=== PATIENT | female | born 1980 | race African-American/Black ===

== ENCOUNTER 2019-09-17 19:32 | Emergency (ER) | payer OTHER ==
[2019-09-17] MEDS ORDERED: ACETAMINOPHEN 500 MG TAB ONE (20:53)
[2019-09-17 21:27] VITALS: BP 131/82; TEMP 97.8
[2019-09-17 21:29] VITALS: O2SAT 99
--- NOTE | 2019-09-17 22:09 | RAD REPORT ---
EXAM DESCRIPTION: RAD - Elbow Right 3 View - 09/17/2019 8:56 pm CLINICAL HISTORY: arm injury COMPARISON: No comparisons FINDINGS: No fracture is identified and no elevated posterior fat pad. There is no dislocation or pe riosteal reaction noted. No foreign body or other soft tissue abnormality. No other significant findi ng. IMPRESSION: Negative right elbow examination.
--- NOTE | 2019-09-21 16:25 | EDPHYS ---
Physician Documentation [facility] Name: Anna Spaulding Age: 39 yrs Sex: Female : 1980 Arrival Date: 09/17/2019 Time: 19:36 Bed 4 Private MD: ED Physician Charanjit Vazquez HPI: 09/16 19:52 This 39 yrs old Black Female presents to ER via Ambulatory with complaints of Arm Pain. jmm 19:52 The patient or guardian complains of injury, pain. Onset: The symptoms/episode jmm began/occurred acutely, 1 day(s) ago. Modifying factors: The symptoms are alleviated by nothing. the symptoms are aggravated by movement. This is a 39 year old female with a history of overactive bladder that presents to the ED with complaints of right elbow pain which occurred when a weighted door his her arm. patient denies other injury. . 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 - Social history:: Smoking status: Patient denies any tobacco usage or history of. Patient/guardian denies using alcohol, street drugs, tobacco products. ROS: 19:52 Constitutional: Negative for fever, chills, and weight loss, Cardiovascular: Negative jmm for chest pain, palpitations, and edema, Respiratory: Negative for shortness of breath, cough, wheezing, and pleuritic chest pain. 19:52 MS/extremity: Positive for injury or acute deformity, pain. 19:52 All other systems are negative. Exam: 19:52 Constitutional: This is a well developed, well nourished patient who is awake, alert, jmm and in no acute distress. Head/Face: atraumatic. Eyes: EOMI, no conjunctival erythema appreciated ENT: Moist Mucus Membranes Neck: Trachea midline, Supple Chest/axilla: Normal chest wall appearance and motion. Cardiovascular: Regular rate and rhythm. No edema appreciated Respiratory: Normal respirations, no respiratory distress appreciated Abdomen/GI: Non distended, soft Back: Normal ROM Skin: General appearance color normal 19:52 Musculoskeletal/extremity: ROM: limited active range of motion due to pain, in the right arm and right elbow, Circulation is intact in all extremities. Sensation intact. 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 19:52 Skin: Appearance: Color: normal in color. 19:52 Neuro: Orientation: is normal, Mentation: is normal, Memory: is normal. 19:52 Psych: Behavior/mood is pleasant, cooperative. Vital Signs: 19:45 BP 131 / 82; Pulse 70; Resp 17; Temp 97.8; Pulse Ox 100% ; Pain 8/10; ll1 21:12 Pulse 72; Resp 16 S; Pulse Ox 99% on R/A; jd3 MDM: 19:[address] [facility] 21:04 Data reviewed: vital signs, nurses notes. Counseling: I had a detailed discussion with [facility] the patient and/or guardian regarding: the historical points, exam findings, and any diagnostic results supporting the discharge/admit diagnosis, radiology results, the need for outpatient follow up, to return to the emergency department if symptoms worsen or persist or if there are any questions or concerns that arise at home. ED course: Xray appears normal. patient advised to follow up with ortho for reevaluation and otherwise given strict return precautions. patient understood and agrees with the plan of care. . 09/16 20:04 Order name: Elbow Right [address] [facility] Administered Medications: 20:52 Drug: Tylenol 1000 mg Route: PO; jd3 21:13 Follow up: Response: No adverse reaction jd3 Disposition: 22:54 Co-signature as Attending Physician, Charanjit Vazquez MD. [email or web address] Disposition: 09/17/19 21:05 Discharged to Home. Impression: Contusion of right elbow. - Condition is Stable. - Discharge Instructions: Elbow Contusion. - Prescriptions for orphenadrine citrate 100 mg Oral Tablet Sustained Release - take 1 tablet by ORAL route 2 times per day As needed; 20 tablet. - Medication Reconciliation Form, Thank You Letter, Antibiotic Education, Prescription Opioid Use form. - Follow up: Bautista Sal MD; When: 2 - 3 days; Reason: Recheck today's complaints, Continuance of care, Re-evaluation by your physician. Signatures: Dispatcher [employer] EDMS Renny Chatterjee PA PA jmm Davies, Jonathon RN RN jd3 Willian Neal RN RN ll1 Charanjit Vazquez MD MD [email or web address] Corrections: (The following items were deleted from the chart) 20:51 20:37 Splint - Elbow - Posterior ordered. ricardo willingham 20:51 20:37 Sling ordered. ricardo willingham 21:13 21:05 09/17/2019 21:05 Discharged to Home. Impression: Contusion of right elbow. jd3 Condition is Stable. Forms are Medication Reconciliation Form, Thank You Letter, Antibiotic Education, Prescription Opioid Use. Follow up: Dr. Bautista Sal; When: 2 - 3 days; Reason: Recheck today's complaints, Continuance of care, Re-evaluation by your physician. ricardo
--- NOTE | 2019-09-21 16:25 | ER ---
Nurse's Notes [facility] Name: Anna Spaulding Age: 39 yrs Sex: Female : 1980 Arrival Date: 09/17/2019 Time: 19:36 Bed 4 Private MD: Diagnosis: Contusion of right elbow Presentation: 09/16 19:45 Chief complaint: Patient states: States she was walking out of the store yesterday. ll1 Strong wind blew the door into her right arm. States it hurts near her elbow area since. Coronavirus screen: Proceed with normal triage. Patient denies a cough. Patient denies shortness of breath or difficulty breathing. Patient denies measured and/or subjective temperature greater than 100.4F prior to today's visit. Patient denies travel on a cruise ship or to a country the [facility] currently lists as an affected area. Patient denies contact with known and/or suspected case of COVID-19. Ebola Screen: Patient denies travel to an Ebola-affected area in the 21 days before illness onset. Initial Sepsis Screen: Does the patient meet any 2 criteria? No. Patient's initial sepsis screen is negative. Does the patient have a suspected source of infection? No. Patient's initial sepsis screen is negative. Risk Assessment: Do you want to hurt yourself or someone else? Patient reports no desire to harm self or others. Onset of symptoms was September 16, 2019. 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 - Social history:: Smoking status: Patient denies any tobacco usage or history of. Patient/guardian denies using alcohol, street drugs, tobacco products. Screenin:55 Abuse screen: Denies threats or abuse. Nutritional screening: No deficits noted. jd3 Tuberculosis screening: No symptoms or risk factors identified. Fall Risk Ambulatory Aid- None/Bed Rest/Nurse Assist (0 pts). Gait- Normal/Bed Rest/Wheelchair (0 pts) Mental Status- Oriented to own ability (0 pts). Total Lilly Fall Scale indicates No Risk (0-24 pts). Assessment: 19:53 General: Appears in no apparent distress. uncomfortable, Behavior is calm, cooperative, jd3 appropriate for age. Pain: Complains of pain in right elbow Quality of pain is described as aching, tender. Neuro: Level of Consciousness is awake, alert, obeys commands, Oriented to person, place, time, situation. Cardiovascular: Denies chest pain, Capillary refill < 3 seconds Patient's skin is warm and dry. Respiratory: Airway is patent Respiratory effort is even, unlabored, Respiratory pattern is regular, symmetrical, Denies cough, shortness of breath. GI: No signs and/or symptoms were reported involving the gastrointestinal system. : No signs and/or symptoms were reported regarding the genitourinary system. EENT: No signs and/or symptoms were reported regarding the EENT system. Derm: Skin is intact, Skin is dry, Skin is normal, Skin temperature is warm no bruising noted to right arm. Musculoskeletal: Circulation, motion, and sensation intact. Range of motion: limited in right elbow due to pain. 20:53 Reassessment: Patient appears in no apparent distress at this time. Patient and/or jd3 family updated on plan of care and expected duration. Pain level reassessed. Patient is alert, oriented x 3, equal unlabored respirations, skin warm/dry/pink. pt refused splint, provider notified. 21:12 Reassessment: Patient appears in no apparent distress at this time. Patient and/or jd3 family updated on plan of care and expected duration. Pain level reassessed. Patient is alert, oriented x 3, equal unlabored respirations, skin warm/dry/pink. report understanding of discharge instructions. Patient states feeling better. Vital Signs: 19:45 BP 131 / 82; Pulse 70; Resp 17; Temp 97.8; Pulse Ox 100% ; Pain 8/10; ll1 21:12 Pulse 72; Resp 16 S; Pulse Ox 99% on R/A; jd3 ED Course: 19:36 Patient arrived in ED. cf2 19:47 Triage completed. ll1 19:47 Reji Lynn RN is Primary Nurse. jd3 19:47 Renny Chatterjee PA is PHCP. [facility] 19:47 Charanjit Vazquez MD is Attending Physician. [facility] 19:48 Arm band placed on Patient placed in an exam room, on a stretcher. ll1 19:55 Patient has correct armband on for positive identification. Bed in low position. Call jd3 light in reach. Side rails up X 1. Pulse ox on. NIBP on. Warm blanket given. Ice pack to injury. 20:54 No provider procedures requiring assistance completed. Patient did not have IV access jd3 during this emergency room visit. 20:56 Elbow Right 3 View XRAY In Process Unspecified. EDMS 21:04 Bautista Sal MD is Referral Physician. [facility] Administered Medications: 20:52 Drug: Tylenol 1000 mg Route: PO; jd3 21:13 Follow up: Response: No adverse reaction jd3 Outcome: 21:05 Discharge ordered by MD. jmm 21:12 Discharged to home ambulatory. jd3 21:12 Condition: stable 21:12 Discharge instructions given to patient, Instructed on discharge instructions, follow up and referral plans. medication usage, Demonstrated understanding of instructions, follow-up care, medications, Prescriptions given X 1. 21:13 Patient left the ED. jd3 Signatures: Dispatcher [employer] EDUT Renny Chatterjee PA PA Reji Vo RN RN jd3 Laron Paul cf2 Willian Neal RN RN ll1 Corrections: (The following items were deleted from the chart) 20:08 19:53 Derm: Skin is intact, Skin is dry, Skin is normal, Skin temperature is warm jd3 jd3 20:08 19:53 Musculoskeletal: Circulation, motion, and sensation intact. Range of motion: jd3 intact in all extremities, jd3
== END 2019-09-17 21:13 | disposition home or self-care (01) ==
LOC: ER 19:32
DX: S50.01XA Contusion of right elbow, initial encounter (principal); W22.8XXA Striking against or struck by other objects, initial encounter; Y93.9 Activity, unspecified; Y92.9 Unspecified place or not applicable
CPT/HCPCS: 99284